=== PATIENT | female | born 1985 | race African-American/Black ===

== ENCOUNTER 2017-08-15 09:17 | Inpatient (IN) | payer OTHER ==
[2017-08-15 09:23] VITALS: BMI 64.2
--- NOTE | 2017-08-15 09:55 | PDOC ---
History of Present Illness - General Chief Complaint: Edema Stated Complaint: NUMBNESS,CHEST PAIN Time Seen by Provider: 08/15/17 09:37 History Source: Patient Exam Limitations: No Limitations - History of Present Illness Initial Comments: This is a 31 YOF with h/o CHF (thought d/t cardiomyopathy), HTN, and asthma who p/w worsening BLE edema extending to her lower abdomen, SOB, orthopnea, and left sided chest pain which feels like needles and radiates straight back to her scapula for the past 2-3 days. She has never had these symptoms before. She made a 10 hour car trip from [place] about 10 days ago and has been having worsening BLE edema and pain since that time. She takes Lasix and has been taking her normal dose lately. She additionally takes multiple medications for HTN and has been taking them compliantly as well. She additionally notes nausea, one episode of vomiting yesterday, left arm heaviness /mild numbness and tingling, cough productive of yellow sputum. Past History - Past Medical History Allergies/Adverse Reactions: Allergies Allergy/AdvReac Type Severity Reaction Status Date / Time No Known Drug Allergies Allergy Verified 08/15/17 09:23 banana [Banana] AdvReac Verified 08/15/17 09:23 kiwi AdvReac Unknown Uncoded 08/15/17 09:23 Home Medications: Ambulatory Orders Vit/Iron Fumarate/FA [ Plus Tablet] 1 tab PO DAILY 07/06/13 Albuterol Sulfate Inhaler - [Ventolin HFA Inhaler -] 1 - 2 inh PO Q4H #1 inhaler 09/14/13 Budesonide/Formeterol Fumarate [SYMBICORT 160/4.5mcg -] 2 inh IH BID #0 inhaler 09/14/13 Montelukast Na [Singulair -] 10 mg PO HS #0 tablet 09/14/13 predniSONE [Deltasone -] 40 mg PO DAILY #14 tablet 09/14/13 Anemia: No Asthma: Yes Cancer: No Cardiac Disorders: Yes (enlarged heart) CVA: No COPD: No CHF: No DVT: No Dementia: No Diabetes: Yes (pre) GI Disorders: No Disorders: No HTN: Yes Hypercholesterolemia: No Liver Disease: No Seizures: No Thyroid Disease: No Other medical history: sleep apnea - Surgical History Abdominal Surgery: No Appendectomy: No Cardiac Surgery: No Cholecystectomy: No Lung Surgery: No Neurologic Surgery: No Orthopedic Surgery: No - Reproductive History (#): 2 Para: 0 Cervical CA: No Dysfunctional Uterine Bleeding: No Ectopic : No Endometrial CA: No Polycystic Ovaries: No Tubal Ligation: No - Immunization History Immunization Up to Date: Yes - Suicide/Smoking/Psychosocial Hx Smoking Status: Yes Smoking History: Current some day smoker Have you smoked in the past 12 months: No Number of Cigarettes Smoked Daily: 1 Information on smoking cessation initiated: No Hx Alcohol Use: No Drug/Substance Use Hx: No Substance Use Type: None Hx Substance Use Treatment: No Review of Systems - Review of Systems Able to Perform ROS?: Yes Constitutional: Yes: Chills, Malaise, Weakness. No: Fever, Unexplained wgt Loss HEENTM: No: Nose Congestion, Throat Pain Respiratory: Yes: Cough, Orthopnea, Shortness of Breath, SOB with Exertion, SOB at Rest, Wheezing. No: Hemoptysis Cardiac (ROS): Yes: Chest Pain, Edema. No: Lightheadedness, Syncope ABD/GI: Yes: Nausea, Vomiting (yesterday). No: Constipated, Diarrhea : No: Burning, Dysuria Musculoskeletal: Yes: Back Pain (left upper back). No: Neck Pain Integumentary: No: Bruising, Rash Neurological: Yes: Numbness, Tingling. No: Headache, Dizziness Endocrine: No: Unexplained Weight Gain, Unexplained Weight Loss *Physical Exam - Vital Signs Last Vital Signs Temp Pulse Resp BP Pulse Ox 97.9 F 101 H 20 148/100 95 08/15/17 09:20 08/15/17 09:20 08/15/17 09:20 08/15/17 09:20 08/15/17 09:20 - Physical Exam General Appearance: Yes: Nourished, Moderate Distress, Obese (morbidly), Other ( uncomfortable and unwell appearing adult female who is a bit tachynpeic, but speaking full sentences, answering questions appropriately) HEENT: positive: EOMI, SHAISTA, Normal Voice, Hearing Grossly Normal. negative: Scleral Icterus (R), Scleral Icterus (L), Nasal Congestion Neck: positive: Trachea midline, Supple. negative: Tender, Rigid Respiratory/Chest: positive: Lungs Clear, Respiratory Distress (mild), Labored Respiration, Rapid RR, Decreased Breath Sounds, Crackles, Rhonchi, Wheezing. negative: Stridor Cardiovascular: positive: Regular Rhythm, S1, S2, Edema (3+ BLE with edema extending up past sacrum with trace lower abdominal pitting edema), JVD, Tachycardia. negative: Murmur (but difficult exam and distant heart sounds possibly 2/2 body habitus) Gastrointestinal/Abdominal: positive: Normal Bowel Sounds, Soft, Protuberent. negative: Tender, Organomegaly, Pulsatile Mass, Guarding Musculoskeletal: positive: Normal Inspection. negative: Decreased Range of Motion, Vertebral Tenderness Extremity: positive: Normal Capillary Refill, Normal Inspection, Normal Range of Motion. negative: Tender, Cyanosis Integumentary: positive: Normal Color, Dry, Warm, Diaphoresis (mildly). negative: Erythema, Rash, Bruising Neurologic: positive: cad manager II-XII NML intact, Fully Oriented, Alert, Normal Mood/ Affect, Normal Response, Motor Strength 5/5. negative: EOM Palsy, Facial Droop , Numbness, Sensory Deficit (sensory intact), Confused, Disoriented Heart Score/ECG Review - History History: Moderately suspicious - Electrocardiogram EKG: Non specific repolarization disturbance - Age Age: </= 45 - Risk Factors Risk Factors Heart Score: Yes Hx Hypercholesterolemia, Yes Hx Hypertension, Yes Hx Obesity Based on the list above the patient has:: >/=3 risk factors or Hx atherosclerotic disease - Troponin Troponin: </= normal limit - Score Heart Score - Total: 4 #1 08/15/17 11:28 Sinus tach rate 93, normal axis, prolonged QTc at 487, incomp RBBB, poor R wave progression anteriorly, flipped T waves anteriorly ED Treatment Course - LABORATORY CBC & Chemistry Diagram: 08/15/17 11:00 08/15/17 11:00 Medical Decision Making - Medical Decision Making Patient with h/o CHF who p/w SOB, cough, orthopnea same as their prior CHF. Initial Vital Signs Temp Pulse Resp BP Pulse Ox 97.9 F 101 H 20 148/100 95 08/15/17 09:20 08/15/17 09:20 08/15/17 09:20 08/15/17 09:20 08/15/17 09:20 Exam: morbidly obese, mild-moderate distress, speaking full sentences but tachypneic, bilateral expiratory wheezes and rhonchi, inspiratory crackles diffusely, BLE 2 to 3+ pitting edema and calf mild tenderness bilaterally, edema is symmetric DDX IBNLT: CHF, pulmonary edema, COPD, asthma, other lung disease, PNA/ bronchitis, anemia, ACS, pericarditis, tamponade, AD, PE, PTX, allergic reaction , malignancy (e.g. causing pericardial effusion or vascular shunt), other infection, pulmonary HTN, etc. W/U ordered: CBCD CMP Mg Phos Troponin CK CKMB BNP ABG EKG CXR Chest CTA PE protocol Duplex BLE TX ordered: O2, Pt positioned with head of bed up Will hold off on NTG, Lasix, BiPAP and re-assess. EKG: Sinus tach rate 93, normal axis, prolonged QTc at 487, incomp RBBB, poor R wave progression anteriorly, flipped T waves anteriorly CXR: CMG, congestive changes, possible LLL consolidation versus atelectasis. Chest CTA: NADP, no PE. 08/15/17 12:09 Reassessment: Patient remains a bit anxious, persistent crackles. Ordered: 40 mg IV Lasix, ASA 324, Ativan 1 mg IVP Laboratory Tests 08/15/17 08/15/17 08/15/17 11:00 11:00 11:00 WBC 10.3 H RBC 4.72 Hgb 12.6 D Hct 38.8 D MCV 82.1 MCH 26.7 MCHC 32.5 RDW 15.2 Plt Count 282 MPV 8.1 Absolute Neuts (auto) 8.1 Neutrophils % 78.5 Lymphocytes % 13.2 Monocytes % 6.9 Eosinophils % 0.9 Basophils % 0.5 Nucleated RBC % 0 PT with INR 11.50 INR 1.02 PTT (Actin FS) Sodium 141 Potassium 4.1 Chloride 105 Carbon Dioxide 29 Anion Gap 7 L BUN 9 Creatinine 0.6 Creat Clearance w eGFR > 60 Random Glucose 103 Calcium 8.8 Magnesium 1.9 Total Bilirubin 0.3 D AST 19 ALT 28 Alkaline Phosphatase 67 Creatine Kinase 131 Troponin I < 0.02 B-Natriuretic Peptide 92.22 Total Protein 7.0 Albumin 3.4 Lipase 62 L Blood Type Antibody Screen 08/15/17 08/15/17 08/15/17 11:00 11:00 11:00 WBC RBC Hgb Hct MCV MCH MCHC RDW Plt Count MPV Absolute Neuts (auto) Neutrophils % Lymphocytes % Monocytes % Eosinophils % Basophils % Nucleated RBC % PT with INR INR PTT (Actin FS) 33.1 Sodium Potassium Chloride Carbon Dioxide Anion Gap BUN Creatinine Creat Clearance w eGFR Random Glucose Calcium Magnesium Total Bilirubin AST ALT Alkaline Phosphatase Creatine Kinase Troponin I B-Natriuretic Peptide Cancelled Total Protein Albumin Lipase Cancelled Blood Type O POSITIVE Antibody Screen Negative 08/15/17 15:41 Reassessment: Patient remains wheezy; DuoNebx2 ordered. The Pt is unsafe for discharge at this time. They require further hospital observation, workup, and treatment. Patient needs IV meds 2/2 likely bowel edema as PO medications likely less effective. Microblog sent to [facility] for admission. Spoke with [facility], in agreement Pt to be admitted to Tele Obs. Decision to Admit order placed to covering attending Dr. Jaramillo. *DC/Admit/Observation/Transfer Diagnosis at time of Disposition: CHF (congestive heart failure) Qualifiers: Heart failure type: unspecified Heart failure chronicity: unspecified Qualified Code(s): I50.9 - Heart failure, unspecified Asthma Qualifiers: Asthma severity: unspecified severity Asthma persistence: unspecified Asthma complication type: unspecified Qualified Code(s): J45.909 - Unspecified asthma, uncomplicated Chest pain Qualifiers: Chest pain type: unspecified Qualified Code(s): R07.9 - Chest pain, unspecified - Discharge Dispostion Condition at time of disposition: Guarded Decision to Admit order: Yes - Referrals - Patient Instructions - Post Discharge Activity
[2017-08-15] MEDS ORDERED: morphine CARPU-JECT 4 MG/1 ML DISP.SYRIN IVPUSH ONE ×2 (10:33→17:16)
[2017-08-15 11:08] LABS: BASO % 0.5 % (0-2.0); EOS % 0.9 % (0-4.5); HEMATOCRIT 38.8 % (32.4-45.2); HEMOGLOBIN 12.6 GM/dL (10.7-15.3); LYMPH % 13.2 % (8-40); MCH 26.7 pg (25.7-33.7); MCHC 32.5 g/dl (32.0-36.0); MEAN CELL VOLUME 82.1 fl (80-96); MEAN PLT VOLUME 8.1 fl (7.5-11.1); MONO % 6.9 % (3.8-10.2); NEUT % 78.5 % (42.8-82.8); PLATELET COUNT 282 K/MM3 (134-434); RBC 4.72 M/mm3 (3.60-5.2); RDW 15.2 % (11.6-15.6); WHITE BLOOD COUNT 10.3 K/mm3 (4.0-10.0)
[2017-08-15 11:16] LABS: INR 1.02 (0.82-1.09); PROTHROMBIN TIME (PATIENT) 11.5 SEC (9.7-13.0)
[2017-08-15] MEDS ORDERED: MORPHINE SULFATE 2 MG/ML VIAL ONE ×2 (11:16→20:54)
[2017-08-15 11:26] LABS: ALBUMIN 3.4 g/dl (3.4-5.0); ANION GAP 7 (8-16); BILIRUBIN,TOTAL 0.3 mg/dL (0.2-1.0); BLOOD UREA NITROGEN 9 mg/dL (7-18); CALCIUM 8.8 mg/dL (8.5-10.1); CHLORIDE 105 mmol/L (98-107); CO2 29 mmol/L (21-32); CREATININE 0.6 mg/dL (0.55-1.02); GLUCOSE,RANDOM 103 mg/dL (74-106); LIPASE 62 U/L (73-393); SGPT/ALT 28 U/L (12-78); SODIUM 141 mmol/L (136-145)
[2017-08-15 11:30] LABS: ALK PHOS 67 U/L (45-117); MAGNESIUM 1.9 mg/dL (1.8-2.4); N-TERMINAL BNP 92.22 pg/ml (5-125); POTASSIUM 4.1 mmol/L (3.5-5.1); SGOT/AST 19 U/L (15-37)
[2017-08-15] MEDS ORDERED: ASPIRIN 325 MG TABLET PO ONE (12:08)
[2017-08-15] MEDS ORDERED: FUROSEMIDE 40 MG/4 ML INJECTABLE VIAL IVPUSH ONE (12:08)
--- NOTE | 2017-08-15 12:14 | PDOC ---
Attending Attestation - Resident Resident Name: Silva,Natalie - ED Attending Attestation I have performed the following: I have examined & evaluated the patient, The case was reviewed & discussed with the resident, I agree w/resident's findings & plan, Exceptions are as noted - HPI HPI: 08/15/17 12:08 31-year-old female with past medical history of cardiomyopathy, congestive heart failure, hypertension presents with shortness of breath and chest pain. The patient recently traveled from a long car drive from [place]. In the last several days, the patient has been endorsing orthopnea, dyspnea on exertion , lower showing edema. Also has been endorsing reproducible midsternal chest pain that is intermittent and sharp. Not exertional. Denies fevers or chills. Came to the ER for further evaluation. Reports that she's been taking her diuretics but without improvement of symptoms. - Physicial Exam PE: 08/15/17 12:10 GENERAL: Awake, alert, and fully oriented, in no acute distress. +obese HEAD: No signs of trauma EYES: EOMI, sclera anicteric, conjunctiva clear ENT: Auricles normal inspection, hearing grossly normal NECK: Normal ROM, supple LUNGS: Breath sounds equal, +diminished breath sounds bilaterally at the bases. HEART: Regular rate and rhythm, normal S1 and S2, no murmurs, rubs or gallops. TTP anterior sternum. ABDOMEN: Soft, nontender, No guarding, no rebound. No masses EXTREMITIES: Normal range of motion, 1+ lower extremity edema b/l. NEUROLOGICAL: Cranial nerves II through XII grossly intact. Normal speech SKIN: Warm, Dry, normal turgor, no rashes or lesions noted. - Medical Decision Making 08/15/17 12:11 Vital Signs Temp Pulse Resp BP Pulse Ox 97.9 F 101 H 20 148/100 95 08/15/17 09:20 08/15/17 09:20 08/15/17 09:20 08/15/17 09:20 08/15/17 09:20 Patient is exhibiting signs of congestive heart failure. Chest x-ray demonstrates congestive signs and will give IV diuretics. We'll obtain duplex of the lower extremities to rule out DVTs given long car trip. Given the chest pain, obesity, we'll rule out pulmonary embolism. I agree with the resident plan to obtain a CT scan of the chest. The chest pain is somewhat atypical, rule out myocardial function. Ultimately, the patient should be admitted to the hospital for further evaluation. Heart Score/ECG Review - History History: Slightly suspicious - Electrocardiogram EKG: Non specific repolarization disturbance - Age Age: </= 45 - Risk Factors Risk Factors Heart Score: Yes Hx Hypertension, Yes Hx Obesity Based on the list above the patient has:: 1-2 risk factors - Troponin Troponin: </= normal limit - Score Heart Score - Total: 2 #1 ECG reviewed & interpreted by me at: 12:00 08/15/17 12:13 NSR 93, incomplete LBBB, no std/suzanne, normal axis, QTC 487 msec
[2017-08-15] MEDS ORDERED: ASPIRIN 325 MG TABLET ONE (14:45)
[2017-08-15] MEDS ORDERED: LORazepam 2 MG/ML SDV VIAL ONE (14:45)
[2017-08-15] MEDS ORDERED: FUROSEMIDE 40 MG/4 ML INJECTABLE VIAL ONE (14:46)
[2017-08-15] MEDS ORDERED: ALBUTEROL SO4 2.5/IPRATROPIUM 0.5 INH SOL 3 ML VIAL.NEB. NEB ONE ×2 (15:38→17:08)
--- NOTE | 2017-08-15 16:40 | HP ---
CHIEF COMPLAINT: Leg edema, sob, chest pain PCP: Non-staff HISTORY OF PRESENT ILLNESS: 31 yo F h/o HTN, CAD s/p PCI, asthma, CHF from post- cardiomyopathy presented to the ED with chest pain, worsening shortness of breath and b/l LE edema. Patient comes from [place] and has been on vocation in [facility] for 10 days. She said she never misses her home medications including water pill but noticed progressively worsening dysnpnea and orthopnea. She usually sleeps on 6 pillows, walks less than a block, uses CPAP at night. She endorses worsening LE edema especially the R leg. Last ECHO was 2 yrs ago, unsure of findings. She also endorses chest pain, substernal, 9/10, worse with deep breath, palpable tenderness, radiates to the back, relieved with morphine, associated with shortness of breath, dizziness, n/v. Denies fever, chills, salty diet, weakness, urinary or bowel sx. ER course was notable for: (1) Labs essentially within normal limits, including troponin (2) EKG:Sinus tach rate 93, normal axis, prolonged QTc at 487, incomp RBBB, poor R wave progression anteriorly, flipped T waves anteriorly CXR: CMG, congestive changes, possible LLL consolidation versus atelectasis. (3) Recent Travel: Comes from [place], stayed in [facility] for 10 days PAST MEDICAL HISTORY: As above PAST SURGICAL HISTORY: R knee replacement 8 months ago, PCI, hysterectomy Social History: Smokin cig/day x 6 years Alcohol: denies Drugs: denies Family History: maternal grandma was diabetic and had stent at 65 yo, paternal grandfather had VA at 70~ yo Allergies No Known Drug Allergies Allergy (Verified 08/15/17 09:23) banana [Banana] Adverse Reaction (Verified 08/15/17 09:23) kiwi Adverse Reaction (Unknown, Uncoded 08/15/17 09:23) HOME MEDICATIONS: lasix 40mg daily carvidolol 3.25mg BID norvasc 5mg daily aldactone 25mg daily lisinopril 40mg daily spiriva BID Albuteral PRN Ativan PRN REVIEW OF SYSTEMS CONSTITUTIONAL: Absent: fever, chills, diaphoresis, generalized weakness, malaise, loss of appetite, weight change HEENT: Absent: rhinorrhea, nasal congestion, throat pain, throat swelling, difficulty swallowing, mouth swelling, ear pain, eye pain, visual changes CARDIOVASCULAR: chest pain peripheral edema Absent: syncope, palpitations, irregular heart rate, lightheadedness, RESPIRATORY: shortness of breath, dyspnea with exertion, orthopnea Absent: cough, wheezing, stridor, hemoptysis GASTROINTESTINAL: Absent: abdominal pain, abdominal distension, nausea, vomiting, diarrhea, constipation, melena, hematochezia GENITOURINARY: Absent: dysuria, frequency, urgency, hesitancy, hematuria, flank pain, genital pain MUSCULOSKELETAL: Absent: myalgia, arthralgia, joint swelling, back pain, neck pain SKIN: b/l edema Absent: rash, itching, pallor HEMATOLOGIC/IMMUNOLOGIC: Absent: easy bleeding, easy bruising, lymphadenopathy, frequent infections ENDOCRINE: Absent: unexplained weight gain, unexplained weight loss, heat intolerance, cold intolerance NEUROLOGIC: Absent: headache, focal weakness or paresthesias, dizziness, unsteady gait, seizure, mental status changes, bladder or bowel incontinence PSYCHIATRIC: Absent: anxiety, depression, suicidal or homicidal ideation, hallucinations. PHYSICAL EXAMINATION Vital Signs - 24 hr 08/15/17 09:20 Temperature 97.9 F Pulse Rate 101 H Respiratory 20 Rate Blood Pressure 148/100 O2 Sat by Pulse 95 Oximetry (%) GENERAL: morbidly obese, AAO x 3, in no acute distress. EYES: Pupils equal, round and reactive to light, extraocular movements intact, sclera anicteric, conjunctiva clear.. EARS, NOSE, THROAT: oropharynx clear without exudates. Moist mucous membranes. NECK: Normal range of motion, supple without lymphadenopathy, JVD, or masses. LUNGS: CTAB HEART: RRR, normal S1 and S2 without murmur, rub or gallop. ABDOMEN: Soft, obese, nontender, not distended, normoactive bowel sounds, no guarding, no rebound, no masses. LOWER EXTREMITIES: weak pulses, warm, +2 RL peripheral edema, +1 L peripheral edema Laboratory Results - last 24 hr 08/15/17 08/15/17 08/15/17 11:00 11:00 11:00 WBC 10.3 H RBC 4.72 Hgb 12.6 D Hct 38.8 D MCV 82.1 MCH 26.7 MCHC 32.5 RDW 15.2 Plt Count 282 MPV 8.1 Absolute Neuts (auto) 8.1 Neutrophils % 78.5 Lymphocytes % 13.2 Monocytes % 6.9 Eosinophils % 0.9 Basophils % 0.5 Nucleated RBC % 0 PT with INR 11.50 INR 1.02 PTT (Actin FS) Sodium 141 Potassium 4.1 Chloride 105 Carbon Dioxide 29 Anion Gap 7 L BUN 9 Creatinine 0.6 Creat Clearance w eGFR > 60 Random Glucose 103 Calcium 8.8 Magnesium 1.9 Total Bilirubin 0.3 D AST 19 ALT 28 Alkaline Phosphatase 67 Creatine Kinase 131 Troponin I < 0.02 B-Natriuretic Peptide 92.22 Total Protein 7.0 Albumin 3.4 Lipase 62 L Blood Type Antibody Screen 08/15/17 08/15/17 08/15/17 11:00 11:00 11:00 WBC RBC Hgb Hct MCV MCH MCHC RDW Plt Count MPV Absolute Neuts (auto) Neutrophils % Lymphocytes % Monocytes % Eosinophils % Basophils % Nucleated RBC % PT with INR INR PTT (Actin FS) 33.1 Sodium Potassium Chloride Carbon Dioxide Anion Gap BUN Creatinine Creat Clearance w eGFR Random Glucose Calcium Magnesium Total Bilirubin AST ALT Alkaline Phosphatase Creatine Kinase Troponin I B-Natriuretic Peptide Cancelled Total Protein Albumin Lipase Cancelled Blood Type O POSITIVE Antibody Screen Negative EKG:Sinus tach rate 93, normal axis, prolonged QTc at 487, incomp RBBB, poor R wave progression anteriorly, flipped T waves anteriorly CXR: CMG, congestive changes, possible LLL consolidation versus atelectasis. ASSESSMENT/PLAN: 31 yo F admitted to observation for chest pain r/o ACS and worsening b/l edema and shortness of breath. CHF exacerbation -2/2 post- cardiomyopathy -Cont. lasix 40mg IVPUSH -Cont. aldactone -Strict I/O, daily weight * obtain post-diuresis weight tonight for comparison -ECHO -cardiology consult Chest pain, r/o ACS -Heart Score ~3 -ENEDINA 2 -Trop negative x 1, cont. to trend Asthma - Cont. spiriva and albuterol HTN - Cont. carvidolol, norvasc, lisinopril FEN - Fluid restriction 2L daily - Lytes normal - Na+ controlled diet Dispo -Observation Visit type - Emergency Visit Emergency Visit: Yes ED Registration Date: 08/15/17 Care time: The patient presented to the Emergency Department on the above date and was hospitalized for further evaluation of their emergent condition. - New Patient This patient is new to me today: Yes Date on this admission: 08/16/17 - Critical Care Critical Care patient: No Hospitalist Screening - Colonoscopy Questionnaire Colonoscopy Questionnaire: Colonoscopy Questionnaire - Patient: 50 - 75 years old and never had a screening colonoscopy: Unknown History of colon or rectal polyps, or CA: Unknown History of IBD, Crohn's disease or UC: Unknown History of abdominal radiation therapy as a child: Unknown - Relative: 1 with colon or rectal CA, or polyps at age 60 or younger: Unknown Colon or rectal CA diagnosed at age 45 or younger: Unknown Multiple relatives with colon or rectal CA: Unknown - Outcome: Screening Result: Negative Screen
[2017-08-15] MEDS: INSULIN SLIDING SCALE (NOVOLOG) 1 VIAL SQ SCH ×2 (16:43→23:10)
[2017-08-15] MEDS: SPIRONOLACTONE 25 MG TABLET (FP) PO SCH (17:00)
[2017-08-15] MEDS ORDERED: amLODIPine BESYLATE 10 MG TABLET (FP) PO SCH (17:00)
[2017-08-15] MEDS ORDERED: SPIRONOLACTONE 25 MG TABLET (FP) ONE (17:08)
[2017-08-15] MEDS ORDERED: amLODIPine BESYLATE 5 MG TABLET (FP) ONE (17:08)
[2017-08-15] MEDS ORDERED: morphine SULFATE 4 MG/ML VIAL ONE (17:17)
[2017-08-15] MEDS ORDERED: morphine CARPU-JECT 2 MG/1 ML DISP.SYRIN IVPUSH PRN (17:52)
--- NOTE | 2017-08-15 19:17 | PN ---
Teaching Attending Note Name of Resident: Lalit Greenwood ATTENDING PHYSICIAN STATEMENT I saw and evaluated the patient. I reviewed the resident's note and discussed the case with the resident. I agree with the resident's findings and plan as documented. SUBJECTIVE: 31yo F with PMH HTN, CAD s/p PCI, asthma, post- cardiomyopathy presented to the ER with worsening shortness of breath and CP. also noted B/L LE swelling. pt is here visiting from [place]. has been compliant with home medications. states CP is not radiating and improved with morphine in the ER claimns she is compliant [facility] diet and medications. no recent medication changes. last echo was 1 year ago and PCI 2 years ago PCI done pre-operatively prior to hysterectomy for large ovarian cyst OBJECTIVE: Last Vital Signs Temp Pulse Resp BP Pulse Ox 97.9 F 101 H 20 148/100 95 08/15/17 09:20 08/15/17 09:20 08/15/17 09:20 08/15/17 09:20 08/15/17 09:20 General NAD CV S1 S2 RRR no murmur/rub/gallop Lungs mild wheezing decreased at the bases. poor inspiratory effort Abdomen soft NT/ND obese extremities B/L pitting edema R>L R calf is tender on palpation,. no erythema or warmth ASSESSMENT AND PLAN: 31yo F with PMH HTN, CAD s/p PCI, asthma, post- cardiomyopathy presented to the ER with worsening shortness of breath and CP. 1. Acute CHF exacerbation- suspected systolic but do not have previous echo to review. will start lasix 40mg IVP. obtain echo. strict I&O, daily weight, check weight once arrives on the floor. cardio consult 2. CP- high risk factors. trend cardiac enzymes Q6H, ekg. echo pending. cardio consult 3. B/L Edema- R>L. concern for DVT given multiple risk factors. (smoking, obesity, recent 10H car ride) will check doppler 4. HTN- controlled 5. Asthma- some mild wheezing. cont with inhalers. nebs prn 6. Morbid obesity- BMI 64. recommend bariatric referral on discharge 7. DVT ppx- lovenox
--- NOTE | 2017-08-15 19:39 | EKG ---
Test Reason : Blood Pressure : / mmHG Vent. Rate : 093 BPM Atrial Rate : 093 BPM P-R Int : 156 ms QRS Dur : 108 ms QT Int : 392 ms P-R-T Axes : 041 041 014 degrees QTc Int : 487 ms NORMAL SINUS RHYTHM INCOMPLETE LEFT BUNDLE BRANCH BLOCK PROLONGED QT ABNORMAL ECG WHEN COMPARED WITH ECG OF 01-AUG-2011 11:52, INCOMPLETE LEFT BUNDLE BRANCH BLOCK IS NOW PRESENT Confirmed by SANDRA CORRAL, YONY ([id number]) on 08/15/2017 7:38:50 PM Referred By: Confirmed By:YONY FLORES MD
[2017-08-15] MEDS ORDERED: BACITRACIN 0.9 GM PACKET ONE (19:47)
[2017-08-15] MEDS: morphine SULFATE 4 MG/ML VIAL IVPUSH PRN (22:47)
[2017-08-15] MEDS ORDERED: ALBUTEROL SO4 0.083% IH SOL 2.5 MG/3 ML VIAL.NEB. NEB ONE (23:52)
[2017-08-15] MEDS ORDERED: CARVEDILOL 3.125 MG TABLET (FP) ONE (23:52)
[2017-08-16] MEDS: ALBUTEROL SO4 0.083% IH SOL 2.5 MG/3 ML VIAL.NEB. NEB PRN ×2 (00:12→20:45)
[2017-08-16 06:42] LABS: HEMATOCRIT 35.1 % (32.4-45.2); HEMOGLOBIN 11.6 GM/dL (10.7-15.3); MCH 27.1 pg (25.7-33.7); MCHC 33.2 g/dl (32.0-36.0); MEAN CELL VOLUME 81.8 fl (80-96); MEAN PLT VOLUME 7.9 fl (7.5-11.1); PLATELET COUNT 259 K/MM3 (134-434); RBC 4.29 M/mm3 (3.60-5.2); RDW 15.2 % (11.6-15.6); WHITE BLOOD COUNT 10.2 K/mm3 (4.0-10.0)
[2017-08-16 07:09] LABS: ANION GAP 8 (8-16); BLOOD UREA NITROGEN 11 mg/dL (7-18); CALCIUM 8.6 mg/dL (8.5-10.1); CHLORIDE 104 mmol/L (98-107); CO2 28 mmol/L (21-32); CREATININE 0.7 mg/dL (0.55-1.02); GLUCOSE,RANDOM 105 mg/dL (74-106); MAGNESIUM 2.1 mg/dL (1.8-2.4); POTASSIUM 3.8 mmol/L (3.5-5.1); SODIUM 140 mmol/L (136-145)
[2017-08-16] MEDS: CARVEDILOL 3.125 MG TABLET (FP) PO SCH ×3 (09:45→21:01)
[2017-08-16] MEDS: SPIRONOLACTONE 25 MG TABLET (FP) PO SCH (09:45)
[2017-08-16] MEDS: FUROSEMIDE 40 MG/4 ML INJECTABLE VIAL IVPUSH SCH (09:45)
[2017-08-16] MEDS: INSULIN SLIDING SCALE (NOVOLOG) 1 VIAL SQ SCH ×4 (09:46→21:00)
[2017-08-16] MEDS: ENOXAPARIN NA (PORCINE) 40 MG/0.4 ML DISP.SYRIN SQ SCH (09:46)
[2017-08-16] MEDS: amLODIPine BESYLATE 5 MG TABLET (FP) PO SCH (09:46)
[2017-08-16] MEDS ORDERED: MORPHINE SULFATE 2 MG/ML VIAL ONE (10:17)
[2017-08-16] MEDS: morphine SULFATE 4 MG/ML VIAL IVPUSH PRN ×2 (11:14→17:59)
--- NOTE | 2017-08-16 13:50 | EKG ---
Test Reason : Blood Pressure : / mmHG Vent. Rate : 092 BPM Atrial Rate : 092 BPM P-R Int : 142 ms QRS Dur : 108 ms QT Int : 390 ms P-R-T Axes : 047 081 025 degrees QTc Int : 482 ms NORMAL SINUS RHYTHM INCOMPLETE LEFT BUNDLE BRANCH BLOCK PROLONGED QT ABNORMAL ECG WHEN COMPARED WITH ECG OF 15-AUG-2017 10:04, NO SIGNIFICANT CHANGE WAS FOUND Confirmed by TRANG BILLS MD ([id number]) on 08/16/2017 1:50:05 PM Referred By: ALFREDO SCHNEIDER Confirmed By:TRANG BILLS MD
--- NOTE | 2017-08-16 15:16 | CON.CARD ---
Consult Consult Specialty:: Cardiology Referred by:: ramon Jaramillo Reason for Consultation:: CHF - History of Present Illness Chief Complaint: SOB History of Present Illness: 31yo F with PMH HTN, morbid obesity, fiorella on cpap, s/p hysterectomy, and chronic systolic CHF here with sob and chest pain. [place] from [place] last [place] days. Noted for last 3-4 days been having worsening shortness of breath and pleuritic chest pain. +weakness. +LE edema. Reports compliance with meds and cpap. Reports last seen sap bobj developer 9-10 months ago. On CHF meds, but patient does not know her EF. Reports she had a cardiac cath 2 years ago and was told she had no blockages and no stent as per patient. - History Source History Provided By: Patient - Past Medical History Pulmonary: Yes: Asthma ...LMP: 04/29/13 Psych: Yes: Anxiety - Alcohol/Substance Use Hx Alcohol Use: No - Smoking History Smoking history: Current some day smoker Have you smoked in the past 12 months: No Aproximately how many cigarettes per day: 1 Home Medications - Allergies Allergies/Adverse Reactions: Allergies Allergy/AdvReac Type Severity Reaction Status Date / Time No Known Drug Allergies Allergy Verified 08/15/17 09:23 banana [Banana] AdvReac Verified 08/15/17 09:23 kiwi AdvReac Unknown Uncoded 08/15/17 09:23 - Home Medications Home Medications: Ambulatory Orders Albuterol 0.083% Nebulizer Ivanna [Ventolin 0.083% Nebulizer Soln -] 1 amp NEB Q4H PRN 08/15/17 Amlodipine Besylate [Norvasc -] 10 mg PO DAILY 08/15/17 Carvedilol [Coreg -] 3.125 mg PO BID 08/15/17 Furosemide [Lasix] 40 mg PO DAILY 08/15/17 Spironolactone [Aldactone] 25 tab PO DAILY 08/15/17 Tiotropium [place] [Spiriva] 1 inh IH BID 08/15/17 Vital Signs: Vital Signs Temperature 98.8 F 08/16/17 10:00 Pulse Rate 90 08/16/17 10:00 Respiratory Rate 20 08/16/17 10:00 Blood Pressure 129/70 08/16/17 10:00 O2 Sat by Pulse Oximetry (%) 99 08/16/17 09:49 Constitutional: Yes: No Distress Neck: Yes: Supple Respiratory: Yes: Diminished Gastrointestinal: Yes: Soft Cardiovascular: Yes: Regular Rate and Rhythm JVD: No Carotid Bruit: No PMI: Non-Displaced Heart Sounds: Yes: S1, S2 Murmur: No: Systolic Murmur Edema: LLE: Trace, RLE: Trace - Other Data Labs, Other Data: CBC, BMP 08/16/17 06:00 08/16/17 06:00 INR, PTT INR 1.02 (0.82-1.09) 08/15/17 11:00 Troponin, BNP 08/16/17 01:40 Troponin I < 0.02 Troponin, BNP 08/16/17 01:40 Troponin I < 0.02 Imaging - Results Chest X-ray: Report Reviewed Cat Scan: Report Reviewed EKG: Image Reviewed Problem List - Problems (1) CHF (congestive heart failure) Code(s): I50.9 - HEART FAILURE, UNSPECIFIED Qualifiers: Heart failure type: unspecified Heart failure chronicity: unspecified Qualified Code(s): I50.9 - Heart failure, unspecified Assessment/Plan 31yo F with PMH HTN, morbid obesity, fiorella on cpap, s/p hysterectomy, and chronic systolic CHF here with sob and chest pain. [place]. Noted for last 3-4 days been having worsening shortness of breath and pleuritic chest pain. +weakness. +LE edema. Reports compliance with meds and cpap. Reports last seen sap bobj developer 9-10 months ago. On CHF meds, but patient does not know her EF. Reports she had a cardiac cath 2 years ago and was told she had no blockages and no stent as per patient. CT chest neg for PE, pleural effusion or infiltrate EKG: sinus rhythm with nonspecific t wave abnormalities, iRBBB BNP normal Duplex neg DVT Echocardiogram with LVEF 40-45% 1) Acute on chronic systolic CHF -furosemide 40mg IV daily Monitor I/O's and daily weights along with lytes. Replete K as needed -Restart home chf and htn meds. Will clarify why not on rafaela/arb. -Patient reports cath 2 years ago with no blockages. Would attempt to get records. -CT chest with no PE Admit to tele Will follow patient
--- NOTE | 2017-08-16 17:16 | PN ---
Teaching Attending Note Name of Resident: Edy Owen ATTENDING PHYSICIAN STATEMENT I saw and evaluated the patient. I reviewed the resident's note and discussed the case with the resident. I agree with the resident's findings and plan as documented. SUBJECTIVE:some improvement with breathing. denies CP, SOB, fever, chills, cough , N/V/C/D OBJECTIVE: Last Vital Signs Temp Pulse Resp BP Pulse Ox 98.8 F 90 20 140/70 99 08/16/17 10:00 08/16/17 14:00 08/16/17 14:00 08/16/17 14:00 08/16/17 09:49 Intake & Output 08/13/17 08/14/17 08/15/17 08/16/17 23:59 23:59 23:59 23:59 Weight 340 lb 340 lb General NAD CV S1 S2 RRR no murmur/rub/gallop Lungs mild wheezing decreased at the bases. poor inspiratory effort Abdomen soft NT/ND obese extremities1+ pitting edema ASSESSMENT AND PLAN: 31yo F with PMH HTN, CAD s/p PCI, asthma, post- cardiomyopathy presented to the ER with worsening shortness of breath and CP. 1. Acute CHF exacerbation- suspected systolic but do not have previous echo to review. improved. would cont with lasix 40mg IVP. try to obtain records from PMD. f/u echo. strict I&O, daily weight, cardio consulted. cont heart failure medications. coreg/aldactone/acei 2. CP- high risk factors. cardiac markers neg x2. echo pending 3. B/L Edema- liekly due to volume overload. doppler neg for DVT. 4. HTN- controlled 5. Asthma- some mild wheezing. cont with inhalers. nebs prn 6. Morbid obesity- BMI 64. recommend bariatric referral on discharge 7. DVT ppx- lovenox
--- NOTE | 2017-08-16 20:10 | PN ---
Physical Exam: SUBJECTIVE: Patient seen and examined at bedside. Complains of foot swelling and SOB and uncomfortable bed. OBJECTIVE: Vital Signs Period Temp Pulse Resp BP Sys/[place] Pulse Ox Last 24 Hr 97.9 F-99.2 F 76-99 17-20 104-147/65-88 98-100 Gen: morbidly obese, sitting in bed, NAD HEENT: NCAT, EOMI Neck: supple Cardio: distant heart sounds. RRR, no m/r/g appreciated Pulm: distant lung sounds. Air entry heard b/l Abd: Obese. soft, nontender. Ext: 1+ edema b/l Laboratory Results - last 24 hr 08/15/17 08/16/17 08/16/17 22:55 01:40 06:00 WBC 10.2 H RBC 4.29 Hgb 11.6 Hct 35.1 MCV 81.8 MCH 27.1 MCHC 33.2 RDW 15.2 Plt Count 259 MPV 7.9 Sodium Potassium Chloride Carbon Dioxide Anion Gap BUN Creatinine Creat Clearance w eGFR POC Glucometer 122.60759 Random Glucose Calcium Magnesium Troponin I < 0.02 08/16/17 08/16/17 08/16/17 06:00 13:14 17:18 WBC RBC Hgb Hct MCV MCH MCHC RDW Plt Count MPV Sodium 140 Potassium 3.8 Chloride 104 Carbon Dioxide 28 Anion Gap 8 BUN 11 Creatinine 0.7 Creat Clearance w eGFR > 60 POC Glucometer 105.83564 120 Random Glucose 105 Calcium 8.6 Magnesium 2.1 Troponin I Active Medications Generic Name Dose Route Start Last Admin Trade Name Freq PRN Reason Stop Dose Admin Albuterol Sulfate 1 amp 08/15/17 16:53 08/16/17 00:12 Ventolin 0.083% Nebulizer Soln - NEB 1 amp Q4H PRN Administration ASTHMA Amlodipine Besylate 10 mg 08/15/17 17:05 08/16/17 09:46 Norvasc - PO 10 mg DAILY NEERU Administration Carvedilol 3.125 mg 08/15/17 22:00 08/16/17 09:45 Coreg - PO 3.125 mg BID NEERU Administration Enoxaparin Sodium 40 mg 08/16/17 10:00 08/16/17 09:46 Lovenox - SQ 40 mg DAILY NEERU Administration Furosemide 40 mg 08/16/17 10:00 08/16/17 09:45 Lasix Injection - IVPUSH 40 mg DAILY NEERU Administration Insulin Aspart 1 vial 08/15/17 16:30 08/16/17 17:20 Novolog Vial Sliding Scale - SQ Not Given ACHS NEERU Protocol Lisinopril 40 mg 08/17/17 10:00 Prinivil PO DAILY NEERU Lorazepam 0.5 mg 08/16/17 15:16 Ativan - PO BID PRN ANXIETY Morphine Sulfate 2 mg 08/15/17 17:56 08/16/17 17:59 Morphine Sulfate IVPUSH 2 mg Q6H PRN Administration PAIN LEVEL 6-10 Brexpiprazole 3 mg 08/17/17 10:00 Rexulti 3mg--Patient PO 's Own Medication ( DAILY NEERU Non-Formulary) Spironolactone 25 mg 08/15/17 17:00 08/16/17 09:45 Aldactone - PO 25 mg DAILY NEERU Administration Tiotropium [place] 1 puff 08/16/17 10:00 Spiriva - IH DAILY NEERU Zolpidem Tartrate 5 mg 08/16/17 22:00 Ambien - PO HS PRN INSOMNIA ASSESSMENT/PLAN: Pt is a 31 y/o F with PMH HTN, CAD s/p cath, post- cardiomyopathy, asthma who presented to ED with worsening sob & cp. She was admitted for ACS workup. #ACS r/o -cp resolved -trop neg #CHF -echo showed mild concentric LVH, EF 40-45% -Lasix -I&O -daily weights -per pt, b/l edema. Not impressive on my exam #HTN -controlled -Norvasc -Coreg -Lisinopril -Lasix #Asthma -Controlled -Ventolin prn #Morbid Obesity -counselled #FEN -not on fluids -lytes wnl -Na controlled diet PPx -Lovenox Dispo -Admit to Med Surg Edy Owen MD PGY-1 IM Visit type - Emergency Visit Emergency Visit: No - New Patient This patient is new to me today: No - Critical Care Critical Care patient: No - Discharge Referral Referred to [facility] Med P.C.: No
[2017-08-16] MEDS: LORazepam 0.5 MG TABLET PO PRN (20:45)
[2017-08-16] MEDS ORDERED: ZOLPIDEM TARTRATE 5 MG TABLET PO PRN (22:00)
[2017-08-17] MEDS: INSULIN SLIDING SCALE (NOVOLOG) 1 VIAL SQ SCH ×4 (06:04→20:59)
[2017-08-17 06:48] LABS: BASO % 1.1 % (0-2.0); EOS % 1.1 % (0-4.5); HEMOGLOBIN 11.3 GM/dL (10.7-15.3); LYMPH % 15.9 % (8-40); MCH 26.7 pg (25.7-33.7); MCHC 32.2 g/dl (32.0-36.0); MEAN CELL VOLUME 82.8 fl (80-96); MEAN PLT VOLUME 7.8 fl (7.5-11.1); MONO % 8.9 % (3.8-10.2); PLATELET COUNT 253 K/MM3 (134-434); RBC 4.23 M/mm3 (3.60-5.2); RDW 14.8 % (11.6-15.6); WHITE BLOOD COUNT 9.2 K/mm3 (4.0-10.0)
[2017-08-17 07:17] LABS: ANION GAP 5 (8-16); BLOOD UREA NITROGEN 14 mg/dL (7-18); CALCIUM 8.9 mg/dL (8.5-10.1); CHLORIDE 105 mmol/L (98-107); CO2 30 mmol/L (21-32); CREATININE 0.7 mg/dL (0.55-1.02); GLUCOSE,RANDOM 110 mg/dL (74-106); POTASSIUM 4.2 mmol/L (3.5-5.1); SODIUM 140 mmol/L (136-145)
--- NOTE | 2017-08-17 08:34 | PN ---
Physical Exam: SUBJECTIVE: Patient seen and examined at bedside. Feels better today. OBJECTIVE: Vital Signs Period Temp Pulse Resp BP Sys/[place] Pulse Ox Last 24 Hr 97.5 F-98.8 F 82-97 20-20 127-140/65-88 95-100 exam limited by body habitus Gen: morbidly obese, sitting in bed, NAD HEENT: NCAT, EOMI Neck: supple Cardio: distant heart sounds. RRR, no m/r/g appreciated Pulm: distant lung sounds. Air entry heard b/l Abd: Obese. soft, nontender. Ext: 1+ edema b/l Laboratory Results - last 24 hr 08/16/17 08/16/17 08/16/17 13:14 17:18 20:47 WBC RBC Hgb Hct MCV MCH MCHC RDW Plt Count MPV Absolute Neuts (auto) Neutrophils % Lymphocytes % Monocytes % Eosinophils % Basophils % Nucleated RBC % Sodium Potassium Chloride Carbon Dioxide Anion Gap BUN Creatinine Creat Clearance w eGFR POC Glucometer 105.50133 120 134 Random Glucose Calcium 08/17/17 08/17/17 08/17/17 05:18 06:00 06:00 WBC 9.2 RBC 4.23 Hgb 11.3 Hct 35.0 MCV 82.8 MCH 26.7 MCHC 32.2 RDW 14.8 Plt Count 253 MPV 7.8 Absolute Neuts (auto) 6.7 Neutrophils % 73.0 Lymphocytes % 15.9 D Monocytes % 8.9 Eosinophils % 1.1 Basophils % 1.1 Nucleated RBC % 0 Sodium 140 Potassium 4.2 Chloride 105 Carbon Dioxide 30 Anion Gap 5 L BUN 14 Creatinine 0.7 Creat Clearance w eGFR > 60 POC Glucometer 126 Random Glucose 110 H Calcium 8.9 Active Medications Generic Name Dose Route Start Last Admin Trade Name Freq PRN Reason Stop Dose Admin Albuterol Sulfate 1 amp 08/15/17 16:53 08/16/17 20:45 Ventolin 0.083% Nebulizer Soln - NEB 1 amp Q4H PRN Administration ASTHMA Amlodipine Besylate 10 mg 08/15/17 17:05 08/16/17 09:46 Norvasc - PO 10 mg DAILY NEERU Administration Carvedilol 3.125 mg 08/15/17 22:00 08/16/17 21:01 Coreg - PO 3.125 mg BID NEERU Administration Enoxaparin Sodium 40 mg 08/16/17 10:00 08/16/17 09:46 Lovenox - SQ 40 mg DAILY NEERU Administration Furosemide 40 mg 08/16/17 10:00 08/16/17 09:45 Lasix Injection - IVPUSH 40 mg DAILY NEERU Administration Insulin Aspart 1 vial 08/15/17 16:30 08/17/17 06:04 Novolog Vial Sliding Scale - SQ Not Given ACHS NEERU Protocol Lisinopril 40 mg 08/17/17 10:00 Prinivil PO DAILY NEERU Lorazepam 0.5 mg 08/16/17 15:16 08/16/17 20:45 Ativan - PO 0.5 mg BID PRN Administration ANXIETY Morphine Sulfate 2 mg 08/15/17 17:56 08/16/17 17:59 Morphine Sulfate IVPUSH 2 mg Q6H PRN Administration PAIN LEVEL 6-10 Brexpiprazole 3 mg 08/17/17 10:00 Rexulti 3mg--Patient PO 's Own Medication ( DAILY NEERU Non-Formulary) Spironolactone 25 mg 08/15/17 17:00 08/16/17 09:45 Aldactone - PO 25 mg DAILY NEERU Administration Tiotropium [place] 1 puff 08/16/17 10:00 Spiriva - IH DAILY NEERU Zolpidem Tartrate 5 mg 08/16/17 22:00 Ambien - PO HS PRN INSOMNIA ASSESSMENT/PLAN: Pt is a 31 y/o F with PMH HTN, CAD s/p cath, post- cardiomyopathy, asthma who presented to ED with worsening sob & cp. She was admitted for ACS workup. #SOB -Initially felt to be most likely the result of CHF, however BNP only 92 -Pre-exercise O2 sat 96% at rest & 87% during exercise on RA. 98% on 2L during walking -ABG. PH 7.4, pCO2 34.4, pO2 187, HCO3 24.6, O2 sat 99 -Pulm input appreciated. Pt is not [place] as CO2 is < 55. Cannot r/o Pulm HTN as R heart was not well-visualized on echo. component of deconditioning. Rec optimizing fluid/volume status #CHF -Post- CHF diagnosed 2 years ago. S/p cath showing non-occlusive disease -echo showed mild concentric LVH, EF 40-45% -I&O -daily weights -Per Cards, ? if CHF is cause of SOB as echo and BNP do not reflect obvious CHF. -Lasix. Increase from home dose. F/u swelling tomorrow #ACS r/o -cp resolved -trop neg #HTN -controlled -Norvasc -Coreg -Lisinopril -Lasix #Asthma -Controlled -Ventolin prn #Morbid Obesity -counselled #FEN -not on fluids -lytes wnl -Na controlled diet PPx -Lovenox Dispo -Admit to Med Surg Edy Owen MD PGY-1 IM Visit type - Emergency Visit Emergency Visit: No - New Patient This patient is new to me today: No - Critical Care Critical Care patient: No - Discharge Referral Referred to [facility] Med P.C.: No
[2017-08-17] MEDS: morphine SULFATE 4 MG/ML VIAL IVPUSH PRN ×2 (09:22→16:01)
[2017-08-17] MEDS ORDERED: [UNRECOGNIZED DRUG - OTHER] PO SCH (10:00)
--- NOTE | 2017-08-17 10:30 | PN ---
Progress Note, Physician History of Present Illness: seen and examined today in nad. still sob, reports no change in edema. sob when walking to bathroom. urine quantity not increased. - Current Medication List Current Medications: Active Medications Albuterol Sulfate (Ventolin 0.083% Nebulizer Soln -) 1 amp NEB Q4H PRN PRN Reason: ASTHMA Last Admin: 08/16/17 20:45 Dose: 1 amp Amlodipine Besylate (Norvasc -) 10 mg PO DAILY [facility] Last Admin: 08/16/17 09:46 Dose: 10 mg Carvedilol (Coreg -) 3.125 mg PO BID [facility] Last Admin: 08/16/17 21:01 Dose: 3.125 mg Enoxaparin Sodium (Lovenox -) 40 mg SQ DAILY [facility] Last Admin: 08/16/17 09:46 Dose: 40 mg Furosemide (Lasix Injection -) 40 mg IVPUSH DAILY [facility] Last Admin: 08/16/17 09:45 Dose: 40 mg Insulin Aspart (Novolog Vial Sliding Scale -) 1 vial SQ [facility]; Protocol Last Admin: 08/17/17 06:04 Dose: Not Given Lisinopril (Prinivil) 40 mg PO DAILY [facility] Lorazepam (Ativan -) 0.5 mg PO BID PRN PRN Reason: ANXIETY Last Admin: 08/16/17 20:45 Dose: 0.5 mg Morphine Sulfate (Morphine Sulfate) 2 mg IVPUSH Q6H PRN PRN Reason: PAIN LEVEL 6-10 Last Admin: 08/17/17 09:22 Dose: 2 mg Brexpiprazole Rexulti 3mg--Patient 's Own Medication ( Non-Formulary) 3 mg PO DAILY [facility] Spironolactone (Aldactone -) 25 mg PO DAILY [facility] Last Admin: 08/16/17 09:45 Dose: 25 mg Tiotropium [place] (Spiriva -) 1 puff IH DAILY [facility] Zolpidem Tartrate (Ambien -) 5 mg PO HS PRN PRN Reason: INSOMNIA - Objective Vital Signs: Vital Signs Temperature 97.8 F 08/17/17 10:00 Pulse Rate 98 H 08/17/17 10:00 Respiratory Rate 22 08/17/17 10:00 Blood Pressure 132/64 08/17/17 10:00 O2 Sat by Pulse Oximetry (%) 96 08/17/17 07:45 Constitutional: Yes: No Distress, Calm, Obese Eyes: Yes: Conjunctiva Clear, EOM Intact HENT: Yes: Atraumatic, Normocephalic Neck: Yes: Supple, Trachea Midline Cardiovascular: Yes: Regular Rate and Rhythm, S1, S2. No: Bradycardia, Tachycardia, Pulse Irregular, Bruit, JVD, Gallop, Murmur, Rub, S3, S4, Varicosities Respiratory: Yes: Regular, Diminished. No: Rales, Rhonchi, SOB, Wheezes Gastrointestinal: Yes: Normal Bowel Sounds, Soft. No: Distention, Tenderness Extremities: Yes: WNL Edema: Yes Edema: LLE: Trace, RLE: Trace Peripheral Pulses WNL: Yes Peripheral Pulses: Left Doralis Pedis: 2+, Right Dorsalis Pedis: 2+ Neurological: Yes: Alert, Oriented Psychiatric: Yes: Alert, Oriented Labs: CBC, BMP 08/17/17 06:00 08/17/17 06:00 INR, PTT INR 1.02 (0.82-1.09) 08/15/17 11:00 - ....Imaging Chest X-ray: Report Reviewed, Image Reviewed EKG: Report Reviewed, Image Reviewed Other: Report Reviewed, Image Reviewed (tele-nsr, sinus tach, no sig arrhythmias ) Assessment/Plan 31yo F with PMH HTN, morbid obesity, fiorella on cpap, s/p hysterectomy, and chronic systolic CHF here with sob and chest pain. Patient has been in [place] visiting from [place] last 30 days. Noted for last 3-4 days been having worsening shortness of breath and pleuritic chest pain. +weakness. +LE edema. Reports compliance with meds and cpap. Reports last seen civil engineering project designer 9-10 months ago. On CHF meds, but patient does not know her EF. Reports she had a cardiac cath 2 years ago and was told she had no blockages and no stent as per patient. CT chest neg for PE, pleural effusion or infiltrate EKG: sinus rhythm with nonspecific t wave abnormalities, iRBBB BNP normal Duplex neg DVT Echocardiogram with LVEF 40-45% 1) SOB-uncertain etiology, possible Acute on chronic systolic CHF although no radiographic evidence and BNP normal (92) -has not responded significantly to furosemide 40mg IV daily, uncertain if sig volume overload, consider alternative etiologies to sob Monitor I/O's and daily weights along with lytes. Replete K as needed -Cont home chf and htn meds. clarify why not on rafaela/arb. -Patient reports cath 2 years ago with no blockages. Would attempt to get records. -CT chest with no PE and no infiltrates -if no other source of sob identified may need to give a trial of increased Lasix dose
[2017-08-17] MEDS: FUROSEMIDE 40 MG/4 ML INJECTABLE VIAL IVPUSH SCH ×2 (10:46→17:21)
[2017-08-17] MEDS: CARVEDILOL 3.125 MG TABLET (FP) PO SCH ×2 (10:47→20:59)
[2017-08-17] MEDS: LISINOPRIL 20 MG TABLET (FP) PO SCH (10:47)
[2017-08-17] MEDS: amLODIPine BESYLATE 5 MG TABLET (FP) PO SCH (10:47)
[2017-08-17] MEDS: SPIRONOLACTONE 25 MG TABLET (FP) PO SCH (10:47)
[2017-08-17] MEDS: ENOXAPARIN NA (PORCINE) 40 MG/0.4 ML DISP.SYRIN SQ SCH (10:47)
[2017-08-17] MEDS ORDERED: FUROSEMIDE 40 MG/4 ML INJECTABLE VIAL IVPUSH ONE (11:00)
[2017-08-17 11:39] LABS: ARTERIAL BLOOD GAS pH 7.46 (7.35-7.45)
[2017-08-17 11:40] LABS: ARTERIAL BLD GAS O2 SATURATION 99.7 % (90-98.9); ARTERIAL BLOOD GAS BASE EXCESS 1.7 meq/l (-2-2); ARTERIAL BLOOD GAS PCO2 34.4 mmHg (35-45)
[2017-08-17] MEDS: TIOTROPIUM BROMIDE 18 MCG CAPSULES IH SCH (11:41)
[2017-08-17 11:42] LABS: ALLENS TEST POSITIVE
[2017-08-17] MEDS: LORazepam 0.5 MG TABLET PO PRN (13:48)
--- NOTE | 2017-08-17 14:21 | PN ---
Teaching Attending Note Name of Resident: Edy Owen ATTENDING PHYSICIAN STATEMENT I saw and evaluated the patient. I reviewed the resident's note and discussed the case with the resident. I agree with the resident's findings and plan as documented with exceptions below. SUBJECTIVE: Patient seen and examined, Overall unchanged since admission, still with dyspnea on exertion and leg swelling. OBJECTIVE: Vital Signs Period Temp Pulse Resp BP Sys/[place] Pulse Ox Last 24 Hr 97.5 F-97.9 F 82-111 20-22 127-132/64-70 95-98 Intake & Output 08/14/17 08/15/17 08/16/17 08/17/17 23:59 23:59 23:59 23:59 Intake Total 10 0 Balance 10 0 Weight 340 lb 340 lb General: sitting in bed, minimal use of acessory muscles as just came back from walking, able to talk in full sentences, BMI 64 Chest: CTAB, no rales or wheezing but limited by body habitus Abdomen:Soft, obese, NT Extremities: 2+ bilateral pedal pitting edema Home Medication List Medication Instructions Recorded Confirmed Type Albuterol 0.083% Nebulizer Ivanna 1 amp NEB Q4H PRN 08/15/17 08/15/17 History [Ventolin 0.083% Nebulizer Soln -] Amlodipine Besylate [Norvasc -] 5 mg PO DAILY 08/15/17 08/16/17 History Carvedilol [Coreg -] 3.125 mg PO BID 08/15/17 08/15/17 History Furosemide [Lasix] 20 mg PO DAILY 08/15/17 08/16/17 History Spironolactone [Aldactone] 25 tab PO DAILY 08/15/17 08/15/17 History Tiotropium [place] [Spiriva] 1 inh IH BID 08/15/17 08/15/17 History Brexpiprazole [Rexulti] 3 mg PO DAILY 08/16/17 08/16/17 History LORazepam [Ativan] 0.5 mg PO BID PRN 08/16/17 08/16/17 History Lisinopril [Prinivil -] 40 mg PO DAILY 08/16/17 08/16/17 History Vortioxetine Hydrobromide 10 mg PO DAILY 08/16/17 08/16/17 History [Trintellix] Zolpidem Tartrate [Ambien] 10 mg PO HS PRN 08/16/17 08/16/17 History Active Medications Generic Name Dose Route Start Last Admin Trade Name [place] PRN Reason Stop Dose Admin Albuterol Sulfate 1 amp 08/15/17 16:53 08/16/17 20:45 Ventolin 0.083% Nebulizer Soln - NEB 1 amp Q4H PRN Administration ASTHMA Amlodipine Besylate 10 mg 08/15/17 17:05 08/17/17 10:47 Norvasc - PO 10 mg DAILY NEERU Administration Carvedilol 3.125 mg 08/15/17 22:00 08/17/17 10:47 Coreg - PO 3.125 mg BID NEERU Administration Enoxaparin Sodium 40 mg 08/16/17 10:00 08/17/17 10:47 Lovenox - SQ 40 mg DAILY NEERU Administration Furosemide 60 mg 08/17/17 18:00 Lasix Injection - IVPUSH BID@0600,1400 [facility] Insulin Aspart 1 vial 08/15/17 16:30 08/17/17 11:47 Novolog Vial Sliding Scale - SQ Not Given ACHS [facility] Protocol Lisinopril 40 mg 08/17/17 10:00 08/17/17 10:47 Prinivil PO 40 mg DAILY NEERU Administration Lorazepam 0.5 mg 08/16/17 15:16 08/17/17 13:48 Ativan - PO 0.5 mg BID PRN Administration ANXIETY Morphine Sulfate 2 mg 08/15/17 17:56 08/17/17 09:22 Morphine Sulfate IVPUSH 2 mg Q6H PRN Administration PAIN LEVEL 6-10 Brexpiprazole 3 mg 08/17/17 10:00 Rexulti 3mg--Patient PO 's Own Medication ( DAILY [facility] Non-Formulary) Spironolactone 25 mg 08/15/17 17:00 08/17/17 10:47 Aldactone - PO 25 mg DAILY NEERU Administration Tiotropium [place] 1 puff 08/16/17 10:00 08/17/17 11:41 Spiriva - IH 1 inh DAILY NEERU Administration Zolpidem Tartrate 5 mg 08/16/17 22:00 Ambien - PO HS PRN INSOMNIA Laboratory Results - last 24 hr 08/16/17 08/16/17 08/17/17 17:18 20:47 05:18 WBC RBC Hgb Hct MCV MCH MCHC RDW Plt Count MPV Absolute Neuts (auto) Neutrophils % Lymphocytes % Monocytes % Eosinophils % Basophils % Nucleated RBC % Puncture Site ABG pH ABG pCO2 at Pt Temp ABG pO2 at Pt Temp ABG HCO3 ABG O2 Sat (Measured) ABG O2 Content ABG Base Excess John Test O2 Delivery Device Oxygen Flow Rate Sodium Potassium Chloride Carbon Dioxide Anion Gap BUN Creatinine Creat Clearance w eGFR POC Glucometer 120 134 126 Random Glucose Hemoglobin A1c % Calcium 08/17/17 08/17/17 08/17/17 06:00 06:00 06:00 WBC 9.2 RBC 4.23 Hgb 11.3 Hct 35.0 MCV 82.8 MCH 26.7 MCHC 32.2 RDW 14.8 Plt Count 253 MPV 7.8 Absolute Neuts (auto) 6.7 Neutrophils % 73.0 Lymphocytes % 15.9 D Monocytes % 8.9 Eosinophils % 1.1 Basophils % 1.1 Nucleated RBC % 0 Puncture Site ABG pH ABG pCO2 at Pt Temp ABG pO2 at Pt Temp ABG HCO3 ABG O2 Sat (Measured) ABG O2 Content ABG Base Excess John Test O2 Delivery Device Oxygen Flow Rate Sodium 140 Potassium 4.2 Chloride 105 Carbon Dioxide 30 Anion Gap 5 L BUN 14 Creatinine 0.7 Creat Clearance w eGFR > 60 POC Glucometer Random Glucose 110 H Hemoglobin A1c % 5.8 Calcium 8.9 08/17/17 08/17/17 10:25 11:45 WBC RBC Hgb Hct MCV MCH MCHC RDW Plt Count MPV Absolute Neuts (auto) Neutrophils % Lymphocytes % Monocytes % Eosinophils % Basophils % Nucleated RBC % Puncture Site Right radial ABG pH 7.46 H ABG pCO2 at Pt Temp 34.4 L ABG pO2 at Pt Temp 187.0 H* ABG HCO3 24.6 ABG O2 Sat (Measured) 99.7 H* ABG O2 Content 18.3 ABG Base Excess 1.7 John Test Positive O2 Delivery Device N/c Oxygen Flow Rate 2lpm Sodium Potassium Chloride Carbon Dioxide Anion Gap BUN Creatinine Creat Clearance w eGFR POC Glucometer 105 Random Glucose Hemoglobin A1c % Calcium 2D echo/CTA chest results reviewed LE duplex results reviewed ASSESSMENT AND PLAN: 31yo F with PMH HTN, CAD s/p PCI, asthma, h/o post- cardiomyopathy presented to the ER with worsening shortness of breath and CP. -SHortness of breath, ?mild acute systolic HF exacerbation with TITI/OHS, no evidence of asthma exacerbation or infectious process -LE edema, ?Right heart failure -Chest pain, resolved, CTA chest neg -HTN -Asthma Plan: Cardiology input noted, discussed with Dr. Colin, trial of high dose lasix 60 mg IV BID x 24 hours to see for improvement. 2D echo results reviewed, limited study. ABG noted, no evidence of CO2 retention. PUlmonary consult. Prior cardiac cath 2 years ago reportedly non concerning, no stents placed. Suspect overall symptoms from OHS/TITI combined with some volume overload. Weight loss/bariatric surgery counseling. DVTPPX lovenox Ambulatory oxygen needs, discussed with patient, has home oxygen uses prn with activity/sleep, resume on d/c. Dispo planning in 24 hours pending pulmonary input and lasix trial. Plan discussed with patient in detail, all questions answered.
--- NOTE | 2017-08-17 15:28 | CON.PULM ---
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 Patient here on vacation for 10 days. Admitted via the ER due to progressive SOB and bilateral LE edema. (+) baseline orthopnea (6 pillows). Seen in the Telemetry unit. Awake and alert on CPAP @ 14 cm H2O. No fever or chills. No hemoptysis. No sick contacts. ABG: No evidence chronic CO2 retention. Does not meet criteria for OHS (PCO2 > 45 mmHg) - History Source History Provided By: Patient Limitations to Obtaining History: No Limitations - Past Medical History Pulmonary: Yes: Asthma, Sleep Apnea. No: Previously Intubated, Pulmonary Embolus ...LMP: 04/29/13 Psych: Yes: Anxiety - Alcohol/Substance Use Hx Alcohol Use: No - Smoking History Smoking history: Current some day smoker Have you smoked in the past 12 months: No Aproximately how many cigarettes per day: 1 Home Medications - Allergies Allergies/Adverse Reactions: Allergies Allergy/AdvReac Type Severity Reaction Status Date / Time No Known Drug Allergies Allergy Verified 08/15/17 09:23 banana [Banana] AdvReac Verified 08/15/17 09:23 kiwi AdvReac Unknown Uncoded 08/15/17 09:23 - Home Medications Home Medications: Ambulatory Orders Albuterol 0.083% Nebulizer Ivanna [Ventolin 0.083% Nebulizer Soln -] 1 amp NEB Q4H PRN 08/15/17 Amlodipine Besylate [Norvasc -] 5 mg PO DAILY 08/15/17 Carvedilol [Coreg -] 3.125 mg PO BID 08/15/17 Furosemide [Lasix] 20 mg PO DAILY 08/15/17 Spironolactone [Aldactone] 25 tab PO DAILY 08/15/17 Tiotropium [place] [Spiriva] 1 inh IH BID 08/15/17 Brexpiprazole [Rexulti] 3 mg PO DAILY 08/16/17 LORazepam [Ativan] 0.5 mg PO BID PRN 08/16/17 Lisinopril [Prinivil -] 40 mg PO DAILY 08/16/17 Vortioxetine Hydrobromide [Trintellix] 10 mg PO DAILY 08/16/17 Zolpidem Tartrate [Ambien] 10 mg PO HS PRN 08/16/17 Review of Systems - Review of Systems Constitutional: reports: Malaise. denies: Chills, Fever, Night Sweats, Unintentional Wgt. Loss, Weakness Eyes: reports: No Symptoms HENT: reports: No Symptoms Neck: reports: No Symptoms Cardiovascular: reports: Edema, Shortness of Breath. denies: Chest Pain Respiratory: reports: Cough, Orthopnea, Snoring, SOB, SOB on Exertion. denies: Hemoptysis, Wheezing Gastrointestinal: reports: No Symptoms Genitourinary: reports: No Symptoms Breasts: reports: No Symptoms Reported Musculoskeletal: reports: No Symptoms Integumentary: reports: No Symptoms Neurological: reports: No Symptoms Endocrine: reports: No Symptoms Hematology/Lymphatic: reports: No Symptoms Psychiatric: reports: No Symptoms Physical Exam Vital Sings: Vital Signs Temperature 97.8 F 08/17/17 10:00 Pulse Rate 111 H 08/17/17 10:53 Respiratory Rate 22 08/17/17 10:00 Blood Pressure 132/64 08/17/17 10:00 O2 Sat by Pulse Oximetry (%) 98 08/17/17 10:53 Constitutional: Yes: No Distress, Obese Eyes: Yes: Conjunctiva Clear, EOM Intact HENT: Yes: Atraumatic, Normocephalic Neck: Yes: Supple, Trachea Midline Cardiovascular: Yes: Regular Rate and Rhythm Respiratory: Yes: CTA Bilaterally, Diminished, On BiPap, SOB on Exertion, Tachypnea. No: Accessory Muscle Use, Rales, SOB, Stridor, Wheezes ...Inspection: Yes: WNL ...Clubbing: No Gastrointestinal: Yes: Normal Bowel Sounds, Soft, Abdomen, Obese Renal/: Yes: WNL Musculoskeletal: Yes: WNL Extremities: Yes: WNL Edema: Yes Peripheral Pulses WNL: Yes Integumentary: Yes: WNL Neurological: Yes: WNL, Alert, Oriented ...Motor Strength: WNL Psychiatric: Yes: WNL, Alert, Oriented Labs: CBC, BMP 08/17/17 06:00 08/17/17 06:00 ABG Results ABG pH 7.46 (7.35-7.45) H 08/17/17 10:25 ABG pCO2 at Pt Temp 34.4 mmHg (35-45) L 08/17/17 10:25 ABG pO2 at Pt Temp 187.0 mmHg (80-100) H* 08/17/17 10:25 ABG HCO3 24.6 meq/L (22-26) 08/17/17 10:25 ABG O2 Sat (Measured) 99.7 % (90-98.9) H* 08/17/17 10:25 ABG O2 Content 18.3 % vol (15-22) 08/17/17 10:25 ABG Base Excess 1.7 meq/l (-2-2) 08/17/17 10:25 Imaging - Results Chest X-ray: Report Reviewed, Image Reviewed Cat Scan: Report Reviewed, Image Reviewed Problem List - Problems (1) Obstructive sleep apnea on CPAP Code(s): G47.33 - OBSTRUCTIVE SLEEP APNEA (ADULT) (PEDIATRIC); Z99.89 - DEPENDENCE ON OTHER ENABLING MACHINES AND DEVICES (2) Super obese Code(s): E66.9 - OBESITY, UNSPECIFIED (3) Asthma Code(s): J45.909 - UNSPECIFIED ASTHMA, UNCOMPLICATED Qualifiers: Asthma severity: unspecified severity Asthma persistence: unspecified Asthma complication type: unspecified Qualified Code(s): J45.909 - Unspecified asthma, uncomplicated (4) CHF (congestive heart failure) Code(s): I50.9 - HEART FAILURE, UNSPECIFIED Qualifiers: Heart failure type: unspecified Heart failure chronicity: unspecified Qualified Code(s): I50.9 - Heart failure, unspecified Assessment/Plan SOB: Possibly due to mild volume overload / deconditioning Poor acoustic windows for right sided ECHO evaluation and CTA: no overt sign of enlarged PA but would be important to R/O PAH No evidence of OHS: (baseline PCO2 > 45). In addition no sign of metabolic compensation Nightly CPAP and PRN Agree with trial of Lasix Daily weights Do not suspect respiratory tract infection or AE of Asthma: monitor off systemic steroids and ABX: OK to continue maintenance inhalational meds VTE prophylaxis Patient should followup to ensure optimal CPAP titration once she returns to [place] Dr Shrestha.
[2017-08-17] MEDS ORDERED: PATIENT'S OWN MEDICATION (NON-FORMULARY) (Vortioxetine Hydrobromide [Trintellix] 10 MG) PO SCH (15:30)
[2017-08-17] MEDS ORDERED: CYCLOBENZAPRINE HCL 10 MG TABLET (FP) PO ONE (17:26)
[2017-08-17] MEDS: ALBUTEROL SO4 0.083% IH SOL 2.5 MG/3 ML VIAL.NEB. NEB PRN (20:45)
[2017-08-18] MEDS: FUROSEMIDE 40 MG/4 ML INJECTABLE VIAL IVPUSH SCH (05:15)
[2017-08-18] MEDS: INSULIN SLIDING SCALE (NOVOLOG) 1 VIAL SQ SCH ×2 (06:31→11:58)
[2017-08-18] MEDS: morphine SULFATE 4 MG/ML VIAL IVPUSH PRN (07:26)
[2017-08-18] MEDS ORDERED: PT OWN MED DRAWER 7, Y5N ONE (09:25)
[2017-08-18] MEDS: amLODIPine BESYLATE 5 MG TABLET (FP) PO SCH (10:01)
[2017-08-18] MEDS: TIOTROPIUM BROMIDE 18 MCG CAPSULES IH SCH (10:01)
[2017-08-18] MEDS: ENOXAPARIN NA (PORCINE) 40 MG/0.4 ML DISP.SYRIN SQ SCH (10:01)
[2017-08-18] MEDS: CARVEDILOL 3.125 MG TABLET (FP) PO SCH (10:02)
[2017-08-18] MEDS: LISINOPRIL 20 MG TABLET (FP) PO SCH (10:02)
[2017-08-18] MEDS: SPIRONOLACTONE 25 MG TABLET (FP) PO SCH (10:02)
[2017-08-18 12:27] VITALS: BP 106/54; PULSE 90; TEMP 98
[2017-08-18 12:36] LABS: ANION GAP 9 (8-16); BLOOD UREA NITROGEN 18 mg/dL (7-18); CHLORIDE 99 mmol/L (98-107); CO2 32 mmol/L (21-32); CREATININE 0.9 mg/dL (0.55-1.02); GLUCOSE,RANDOM 86 mg/dL (74-106); SODIUM 140 mmol/L (136-145)
--- NOTE | 2017-08-18 12:50 | PN ---
Progress Note, Physician History of Present Illness: pulmonary alert,feeling better,less sob,slept well on bipap - Current Medication List Current Medications: Active Medications Albuterol Sulfate (Ventolin 0.083% Nebulizer Soln -) 1 amp NEB Q4H PRN PRN Reason: ASTHMA Last Admin: 08/17/17 20:45 Dose: 1 amp Amlodipine Besylate (Norvasc -) 10 mg PO DAILY [facility] Last Admin: 08/18/17 10:01 Dose: 10 mg Carvedilol (Coreg -) 3.125 mg PO BID [facility] Last Admin: 08/18/17 10:02 Dose: 3.125 mg Enoxaparin Sodium (Lovenox -) 40 mg SQ DAILY [facility] Last Admin: 08/18/17 10:01 Dose: 40 mg Furosemide (Lasix Injection -) 60 mg IVPUSH BID@0600,1400 [facility] Last Admin: 08/18/17 05:15 Dose: 60 mg Insulin Aspart (Novolog Vial Sliding Scale -) 1 vial SQ ACHS [facility]; Protocol Last Admin: 08/18/17 11:58 Dose: Not Given Lisinopril (Prinivil) 40 mg PO DAILY [facility] Last Admin: 08/18/17 10:02 Dose: 40 mg Lorazepam (Ativan -) 0.5 mg PO BID PRN PRN Reason: ANXIETY Last Admin: 08/17/17 13:48 Dose: 0.5 mg Morphine Sulfate (Morphine Sulfate) 2 mg IVPUSH Q6H PRN PRN Reason: PAIN LEVEL 6-10 Last Admin: 08/18/17 07:26 Dose: 2 mg Brexpiprazole Rexulti 3mg--Patient 's Own Medication ( Non-Formulary) 3 mg PO DAILY [facility] Non-Formulary Medication (Vortioxetine Hydrobromide [Trintellix]) 10 mg PO DAILY [facility] Spironolactone (Aldactone -) 25 mg PO DAILY [facility] Last Admin: 08/18/17 10:02 Dose: 25 mg Tiotropium [place] (Spiriva -) 1 puff IH DAILY [facility] Last Admin: 08/18/17 10:01 Dose: 1 inh Zolpidem Tartrate (Ambien -) 5 mg PO HS PRN PRN Reason: INSOMNIA - Objective Vital Signs: Vital Signs Temperature 98 F 08/18/17 09:00 Pulse Rate 90 08/18/17 09:00 Respiratory Rate 08/18/17 09:00 Blood Pressure 106/54 08/18/17 09:00 O2 Sat by Pulse Oximetry (%) 99 08/18/17 08:33 Constitutional: Yes: Calm, Obese Eyes: Yes: WNL HENT: Yes: WNL Neck: Yes: WNL Cardiovascular: Yes: Regular Rate and Rhythm, S1, S2 Respiratory: Yes: Wheezes (few scattered wheezes) Gastrointestinal: Yes: Normal Bowel Sounds, Abdomen, Obese Extremities: Yes: WNL Edema: Yes Labs: CBC, BMP 08/18/17 11:05 INR, PTT INR 1.02 (0.82-1.09) 08/15/17 11:00 Assessment/Plan Problem List - Problems (1) Obstructive sleep apnea on CPAP Code(s): G47.33 - OBSTRUCTIVE SLEEP APNEA (ADULT) (PEDIATRIC); Z99.89 - DEPENDENCE ON OTHER ENABLING MACHINES AND DEVICES (2) Super obese Code(s): E66.9 - OBESITY, UNSPECIFIED (3) Asthma Code(s): J45.909 - UNSPECIFIED ASTHMA, UNCOMPLICATED Qualifiers: Asthma severity: unspecified severity Asthma persistence: unspecified Asthma complication type: unspecified Qualified Code(s): J45.909 - Unspecified asthma, uncomplicated (4) CHF (congestive heart failure) Code(s): I50.9 - HEART FAILURE, UNSPECIFIED Qualifiers: Heart failure type: unspecified Heart failure chronicity: unspecified Qualified Code(s): I50.9 - Heart failure, unspecified Assessment/Plan SOB: Possibly due to mild volume overload / deconditioning Asthma No evidence of OHS: (baseline PCO2 > 45). Nightly CPAP and PRN Lasix Inhaled bronchodilators Daily weights VTE prophylaxis Patient should followup to ensure optimal CPAP titration once she returns to [place] Dr Estevez
--- NOTE | 2017-08-18 13:29 | PN ---
Teaching Attending Note Name of Resident: Edy Owen ATTENDING PHYSICIAN STATEMENT I saw and evaluated the patient. I reviewed the resident's note and discussed the case with the resident. I agree with the resident's findings and plan as documented with exceptions below. SUBJECTIVE: patient seen and examined, some improvement in leg swelling but overall unchanged. Breathing stable with no new concerns. OBJECTIVE: Vital Signs Period Temp Pulse Resp BP Sys/[place] Pulse Ox Last 24 Hr 97.6 F-98.3 F 70-90 18-24 101-130/44-71 98-99 Intake & Output 08/15/17 08/16/17 08/17/17 08/18/17 23:59 23:59 23:59 23:59 Intake Total 10 410 20 Output Total 1000 Balance 10 410 -980 Weight 340 lb 340 lb 355 lb 3.2 oz General: ambulating in room, no acute distress Chest: limited exam given habitus, no rales or wheezing abdomen:soft, obese, NT Extremities: some improvement in pitting bilateral pedal edema Active Medications Albuterol Sulfate (Ventolin 0.083% Nebulizer Soln -) 1 amp NEB Q4H PRN PRN Reason: ASTHMA Last Admin: 08/17/17 20:45 Dose: 1 amp Amlodipine Besylate (Norvasc -) 10 mg PO DAILY [facility] Last Admin: 08/18/17 10:01 Dose: 10 mg Carvedilol (Coreg -) 3.125 mg PO BID [facility] Last Admin: 08/18/17 10:02 Dose: 3.125 mg Enoxaparin Sodium (Lovenox -) 40 mg SQ DAILY [facility] Last Admin: 08/18/17 10:01 Dose: 40 mg Furosemide (Lasix Injection -) 60 mg IVPUSH BID@0600,1400 [facility] Last Admin: 08/18/17 05:15 Dose: 60 mg Insulin Aspart (Novolog Vial Sliding Scale -) 1 vial SQ ACHS [facility]; Protocol Last Admin: 08/18/17 11:58 Dose: Not Given Lisinopril (Prinivil) 40 mg PO DAILY [facility] Last Admin: 08/18/17 10:02 Dose: 40 mg Lorazepam (Ativan -) 0.5 mg PO BID PRN PRN Reason: ANXIETY Last Admin: 08/17/17 13:48 Dose: 0.5 mg Brexpiprazole Rexulti 3mg--Patient 's Own Medication ( Non-Formulary) 3 mg PO DAILY [facility] Non-Formulary Medication (Vortioxetine Hydrobromide [Trintellix]) 10 mg PO DAILY [facility] Spironolactone (Aldactone -) 25 mg PO DAILY [facility] Last Admin: 08/18/17 10:02 Dose: 25 mg Tiotropium [place] (Spiriva -) 1 puff IH DAILY [facility] Last Admin: 08/18/17 10:01 Dose: 1 inh Zolpidem Tartrate (Ambien -) 5 mg PO HS PRN PRN Reason: INSOMNIA Laboratory Results - last 24 hr 08/17/17 08/17/17 08/18/17 17:15 20:58 05:15 Sodium Potassium Chloride Carbon Dioxide Anion Gap BUN Creatinine Creat Clearance w eGFR POC Glucometer 117 86 121 Random Glucose Calcium 08/18/17 08/18/17 11:05 11:57 Sodium 140 Potassium 4.0 Chloride 99 Carbon Dioxide 32 Anion Gap 9 BUN 18 Creatinine 0.9 Creat Clearance w eGFR > 60 POC Glucometer 94 Random Glucose 86 Calcium 9.0 ASSESSMENT AND PLAN: 31yo F with PMH HTN, CAD s/p PCI, asthma, h/o post- cardiomyopathy presented to the ER with worsening shortness of breath and CP. -Shortness of breath, ?mild acute systolic HF exacerbation with TITI/decondition , no evidence of asthma exacerbation or infectious process, CTA chest neg for PE , 2D echo limited visualization of Right heart -LE edema, ?Right heart failure vs dependent edema vs venous insufficiency -Chest pain, resolved -HTN -Asthma Plan: Minimal improvement with increased diuresis. PE/DVT have been ruled out. No clinical concerns for ongoing volume overload/CHF as discussed with cardiology. Compression stockings. Resume home regimen outpatient follow up with her PCP in [place], discuss ?right heart cath and furhter testing to evaluate and treat PAH/Right heart dysfunction as indicated. Pulmonary input appreciated. Informed patient about Oxygen needs with activity/ambulation. Patient reports similar use prior to admission. D/c home today with outpatient follow up. Plan discussed with patient in detail, all questions answered.
--- NOTE | 2017-08-18 15:08 | PN ---
Progress Note, Physician History of Present Illness: seen and examined today in [facility]. states her edema is improving, urinated more with increased lasix. sob slightly improved. no new complaints. no overnight events. - Objective Vital Signs: Vital Signs Temperature 98 F 08/18/17 09:00 Pulse Rate 90 08/18/17 09:00 Respiratory Rate 18 08/18/17 09:00 Blood Pressure 106/54 08/18/17 09:00 O2 Sat by Pulse Oximetry (%) 95 08/18/17 10:00 Constitutional: Yes: No Distress, Calm, Obese Eyes: Yes: Conjunctiva Clear, EOM Intact, PERRL HENT: Yes: Atraumatic, Normocephalic Neck: Yes: Supple, Trachea Midline Cardiovascular: Yes: Regular Rate and Rhythm, S1, S2. No: Bradycardia, Tachycardia, Pulse Irregular, Bruit, JVD, Gallop, Murmur, Rub, S3, S4, Varicosities Respiratory: Yes: Regular, Diminished. No: Rales, Rhonchi, SOB, Wheezes Gastrointestinal: Yes: Normal Bowel Sounds, Soft. No: Distention, Tenderness Extremities: Yes: WNL Edema: LLE: Trace, RLE: Trace Peripheral Pulses WNL: Yes Neurological: Yes: Alert, Oriented Psychiatric: Yes: Alert, Oriented Labs: CBC, BMP 08/17/17 06:00 08/18/17 11:05 INR, PTT INR 1.02 (0.82-1.09) 08/15/17 11:00 - ....Imaging Chest X-ray: Report Reviewed, Image Reviewed EKG: Report Reviewed, Image Reviewed Other: Report Reviewed, Image Reviewed (tele-NSR, sinus tach, no sig arrhythmias ) Assessment/Plan 31yo F with PMH HTN, morbid obesity, fiorella on cpap, s/p hysterectomy, and chronic systolic CHF here with sob and chest pain. Patient has been in [place] visiting from [place] last 30 days. Noted for last 3-4 days been having worsening shortness of breath and pleuritic chest pain. +weakness. +LE edema. Reports compliance with meds and cpap. Reports last seen obstetric assistant 9-10 months ago. On CHF meds, but patient does not know her EF. Reports she had a cardiac cath 2 years ago and was told she had no blockages and no stent as per patient. CT chest neg for PE, pleural effusion or infiltrate EKG: sinus rhythm with nonspecific t wave abnormalities, iRBBB BNP normal Duplex neg DVT Echocardiogram with LVEF 40-45% 1) SOB-uncertain etiology, likely multifactorial, pt uses home O2 intermittently , possible Acute on chronic systolic CHF although no radiographic evidence and BNP normal (92) -symptoms and edema improved slightly with IV Lasix -pt is being discharged today, to be discharged on higher home dose of Lasix -Cont other home chf and htn meds. need clarify why not on rafaela/arb this can be done as outpatient -Patient reports cath 2 years ago with no blockages. f/up records as outpatient -CT chest with no PE and no infiltrates -ok for discharge from a cardiac standpoint -recc close outpt fup
--- NOTE | 2017-08-18 15:43 | DS ---
Physical Exam: SUBJECTIVE: Patient seen and examined at bedside. OBJECTIVE: Vital Signs Period Temp Pulse Resp BP Sys/[place] Pulse Ox Last 24 Hr 97.6 F-98.3 F 75-90 18-20 101-130/44-69 95-99 PHYSICAL EXAM exam limited by body habitus Gen: morbidly obese, sitting in bed, NAD HEENT: NCAT, EOMI Neck: supple Cardio: distant heart sounds. RRR, no m/r/g appreciated Pulm: distant lung sounds. Air entry heard b/l Abd: Obese. soft, nontender. Ext: 1+ edema b/l LABS Laboratory Results - last 24 hr 08/17/17 08/17/17 08/18/17 17:15 20:58 05:15 Sodium Potassium Chloride Carbon Dioxide Anion Gap BUN Creatinine Creat Clearance w eGFR POC Glucometer 117 86 121 Random Glucose Calcium 08/18/17 08/18/17 11:05 11:57 Sodium 140 Potassium 4.0 Chloride 99 Carbon Dioxide 32 Anion Gap 9 BUN 18 Creatinine 0.9 Creat Clearance w eGFR > 60 POC Glucometer 94 Random Glucose 86 Calcium 9.0 HOSPITAL COURSE: Date of Admission:08/16/17 Date of Discharge: 08/18/17 Pt is a 31 y/o F with PMH HTN, CAD s/p cath, post- cardiomyopathy, asthma who presented to ED with worsening sob & cp. She was admitted for ACS workup. Initially sob was felt to be most likely the result of CHF, however BNP was only 92. Pre-exercise O2 sat 96% at rest & 87% during exercise on RA. 98% on 2L during walking. An ABG was done. Pulm saw pt. Pt is not [place] as CO2 is < 55. Cannot r/o Pulm HTN as R heart was not well-visualized on echo. Component of deconditioning was present. Pt's post- CHF diagnosed 2 years ago. S/p cath showing non-occlusive disease. Her echo showed mild concentric LVH, EF 40-45% I&O were monitored, as were daily weights. Per Cards, it was unclear if CHF was the cause of SOB as echo and BNP do not reflect obvious CHF. She was given Lasix at a higher dose than home dose. Pedal edema reduced. ACS was ruled out. Cp resolved. Trops were neg. Pt's HTN was controlled with home Norvasc, Coreg, Lisinopril, and Lasix. Asthma was controlled with Ventolin prn. Pt was counselled about Morbid Obesity. Pt is currently stable for DC home Minutes to complete discharge: 30 Discharge Summary Reason For Visit: CHF,CHEST PAIN,ASTHMA Condition: Good - Instructions Diet, Activity, Other Instructions: You were in the hospital because of shortness of breath. You need to follow up with your primary care doctor. You were seen by cardiology, Dr. Colin and by pulmonology, Dr. Lozano. 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 You are being sent home on 40 mg of Lasix daily. Compression stockings and keep your leg elevated as much as you can. Advise daily weight checks and notify doctor if weight gain > 3lbs in 2 days. Also notify you doctor if any decreased urination or concerns noted. Your kidney function and potassium levels should be routinely monitored on your current medications. Advise blood work (Basic Metabolic Panel) in 1 week with your doctor. You can continue the rest of your medications as directed by your primary medical team. Use 1-2 oxygen with activity and continue CPAP at night as before. Your weight is having a negative effect on your health. You should consider lifestyle changes like diet and exercise, but if that is not enough, you can consider speaking with your doctor about bariatric surgery. Referrals: Naveen Colin MD [Staff Physician] - 1 Week Keaton Lozano MD, MD [Staff Physician] - 1 Week Disposition: HOME - Home Medications Comprehensive Discharge Medication List: Ambulatory Orders Albuterol 0.083% Nebulizer Ivanna [Ventolin 0.083% Nebulizer Soln -] 1 amp NEB Q4H PRN 08/15/17 Amlodipine Besylate [Norvasc -] 5 mg PO DAILY 08/15/17 Carvedilol [Coreg -] 3.125 mg PO BID 08/15/17 Spironolactone [Aldactone] 25 tab PO DAILY 08/15/17 Tiotropium [place] [Spiriva] 1 inh IH BID 08/15/17 Brexpiprazole [Rexulti] 3 mg PO DAILY 08/16/17 LORazepam [Ativan] 0.5 mg PO BID PRN 08/16/17 Lisinopril [Prinivil -] 40 mg PO DAILY 08/16/17 Vortioxetine Hydrobromide [Trintellix] 10 mg PO DAILY 08/16/17 Zolpidem Tartrate [Ambien] 10 mg PO HS PRN 08/16/17 Furosemide [Lasix] 40 mg PO DAILY #30 tablet 08/18/17 This patient is new to me today: No Emergency Visit: No Critical Care patient: No - Discharge Referral Referred to [facility] Med [facility] No
== END 2017-08-18 14:28 | disposition home or self-care (01) | DRG 291 ==
LOC: JER 09:17 → JERBED 15:07 → OBSVTOIN 08-16 16:06 → J4W 08-16 16:55
PROVIDERS: ADMIT Internal Medicine; ATTEND Hospitalist
DX: I11.0 Hypertensive heart disease with heart failure (principal); O90.3 Peripartum cardiomyopathy; Z68.44 Body mass index [BMI] 60.0-69.9, adult; R07.9 Chest pain, unspecified; J45.909 Unspecified asthma, uncomplicated; E66.01 Morbid (severe) obesity due to excess calories; G47.33 Obstructive sleep apnea (adult) (pediatric); E87.70 Fluid overload, unspecified; I25.10 Atherosclerotic heart disease of native coronary artery without angina pectoris; Z98.61 Coronary angioplasty status; I50.23 Acute on chronic systolic (congestive) heart failure
CPT/HCPCS: 36415; 36600; 71045-TC-FY; 71275-TC; 80048; 80053; 82550; 82803; 82962; 83036; 83690; 83735; 83880; 84484; 85025; 85027; 85610; 85730; 86850; 86900; 86901; 93005; 93010; 93306-TC; 93970-TC; 94640; 94660; 94761; 99285-25; G0378; J7620